=== PATIENT | female | born 1995 | race Caucasian/White ===

== ENCOUNTER 2018-01-20 13:58 | Emergency (ER) | payer SELFPAY ==
[~2018-01-20] VITALS: Ht 157.5 cm; Wt 59.0 kg
[2018-01-20 15:11] VITALS: BP 113/71
== END 2018-01-20 15:11 | disposition home or self-care (01) | DRG 776 ==
LOC: ED 13:58
DX: O91.23 Nonpurulent mastitis associated with lactation (principal)